=== PATIENT | male | born 1990 | race Caucasian/White ===

== ENCOUNTER 2018-11-12 14:28 | Emergency (ER) | payer MEDICAID ==
[2018-11-12 15:26] LABS: % BASOPHILS 0.3 % (0.0-2.0); % EOSINOPHILS 0.8 % (0.0-5.0); % LYMPHOCYTES 8.5 % (20.0-50.0); % MONOCYTES 5.1 % (2.0-10.0); % NEUTROPHILS 85.3 % (40.0-80.0); EOSINOPHILE ABSOLUTE 0.1 Th/cmm (0.1-0.4); HEMATOCRIT 46.2 % (41.0-60); HEMOGLOBIN 15.4 gm/dL (12-16); LYMPHOCYTE ABSOLUTE 0.9 Th/cmm (1.5-3.0); MEAN CORPUSCULAR HEMOGLOBIN 28.4 pg (26.0-30.0); MEAN CORPUSCULAR HGB CONC 33.4 pg (28.0-36.0); MEAN PLATELET VOLUME 7.6 fl; MONOCYTE ABSOLUTE 0.5 Th/cmm (0.3-1.0); NEUTROPHILE ABSOLUTE 9.1 Th/cmm (1.8-8.0); PLATELET COUNT 271 Th/cmm (150-400); RED BLOOD COUNT 5.44 Mil/cmm (4.30-5.70); RED CELL DISTRIBUTION WIDTH 12.5 % (11.5-20.0); WHITE BLOOD COUNT 10.6 Th/cmm (4.8-10.8)
[2018-11-12 15:43] LABS: ALB/GLOB RATIO 1.3 (1.0-1.8); ALKALINE PHOSPHATASE 64 U/L (34-104); ANION GAP 13.6 (7.0-16.0); BILIRUBIN,TOTAL 0.4 mg/dL (0.3-1.0); BUN - UREA NITROGEN 17 mg/dL (7-25); CALCIUM SERUM 9.6 mg/dL (8.6-10.3); CARBON DIOXIDE 26.7 mEq/L (21.0-31.0); CHLORIDE 103 mEq/L (98-107); CREATININE - SERUM 0.9 mg/dL (0.7-1.3); GFR AFRICAN-AMERICAN > 60.0 ml/min (>90); GFR NON AFRICAN-AMERICAN > 60.0 ml/min; GLUCOSE 109 mg/dL (70-105); POTASSIUM SERUM 4.3 mEq/L (3.5-5.1); SGOT 39 U/L (13-39); SGPT/ALT 55 U/L (7-52); SODIUM SERUM 139 mEq/L (136-145); TOTAL PROTEIN,SERUM 7.2 gm/dL (6.0-8.3)
[2018-11-12] MEDS ORDERED: Morphine Sulfate 2 mg/mL 1mL Syr IVP STA (15:58)
[2018-11-12] MEDS ORDERED: Morphine Sulfate 2 mg/mL 1mL Syr ONE (16:10)
[2018-11-12] MEDS ORDERED: IOHEXOL 350mgI/mL 150mL IV ONE (16:44)
[2018-11-12] MEDS ORDERED: Lactated Ringer 1,000 ML IV ONE (18:16)
--- NOTE | 2018-11-12 18:27 | ED Physician Chart ---
ED Chief Complaint/HPI - Patient Information Date Seen:: 11/12/18 Time Seen:: 14:48 Chief Complaint:: left clavicle pain History of Present Illness:: left clavicle pain s/p snowboard accident 1 hour prior to presentation. Allergies:: Allergies Allergy/AdvReac Type Severity Reaction Status Date / Time No Known Allergies Allergy Verified 11/12/18 14:48 Vitals:: Vital Signs - 8 hr 11/12/18 11/12/18 14:48 17:49 Temp 98.5 F 98.2 F HR 79 97 RR 16 16 BP 131/70 144/83 O2 Sat % 99 98 Historian:: Patient, Family Member Review:: Nurse's Note Reviewed ED Review of Systems - Review of Systems General/Constitutional: No fever, No chills, No weight loss, No weakness, No diaphoresis, No edema, No loss of appetite Skin: No skin lesions, No rash, No bruising Head: No headache, No light-headedness Eyes: No loss of vision, No pain, No diplopia ENT: No earache, No nasal drainage, No sore throat, No tinnitus Neck: No neck pain, No swelling, No thyromegaly, No stiffness, No mass noted Cardio Vascular: No chest pain, No palpitations, No PND, No orthopnea, No edema Pulmonary: No SOB, No cough, No sputum, No wheezing GI: No nausea, No vomiting, No diarrhea, No pain, No melena, No hematochezia, No constipation, No hematemesis G/U: No dysuria, No frequency, No hematuria Musculoskeletal: Bone or joint pain Endocrine: No polyuria, No polydipsia Psychiatric: No prior psych history, No depression, No anxiety, No suicidal ideation Hematopoietic: No bruising, No lymphadenopathy Allergic/Immuno: No urticaria, No angioedema Neurological: No syncope, No focal symptoms, No weakness, No paresthesia, No headache, No seizure, No dizziness, No confusion, No vertigo ED Past Medical History - Past Medical History Obtainable: Yes Past Medical History: No significant medical hx Family Medical History - Family Member Mother History Unknown: Yes ED Physical Exam - Physical Examination General/Constitutional: Awake, Well-developed, well-nourished, Alert, No distress, GCS 15, Non-toxic appearing, Ambulatory Head: Atraumatic Eyes: Lids, conjuctiva normal, PERRL, EOMI Skin: Nl inspection, No rash, No skin lesions, No ecchymosis, Well hydrated, No lymphadenopathy ENMT: External ears, nose nl Neck: Nontender, No nuchal rigidity, No stridor Respiratory: Nl effort/Exclusion, Clear to Auscultation, No Wheeze/Rhonchi/Rales Cardio Vascular: RRR, No murmur, gallop, rubs, NL S1 S2 Extremities: Normal digits & nails Other Extremities comments:: obvious step off deformity seen and palpated left clavicle (mid) Neuro/Psych: Alert/oriented Other Neuro/Psych comments:: not able to move LUE much due to pain. Able to bend left elbow and move left hand. No evidence of compartment syndrome. NV intact. in pain. ED Labs/Radiology/EKG Results - Lab Results Results: Laboratory Tests 11/12/18 11/12/18 15:20 15:20 WBC 10.6 RBC 5.44 Hgb 15.4 Hct 46.2 MCV 85.0 MCH 28.4 MCHC Differential 33.4 RDW 12.5 Plt Count 271 MPV 7.6 Neutrophils % 85.3 H Lymphocytes % 8.5 L Monocytes % 5.1 Eosinophils % 0.8 Basophils % 0.3 Sodium 139 Potassium 4.3 Chloride 103 Carbon Dioxide 26.7 Anion Gap 13.6 BUN 17 Creatinine 0.9 Est GFR ( Amer) > 60.0 Est GFR (Non-Af Amer) > 60.0 BUN/Creatinine Ratio 18.9 Glucose 109 H Calcium 9.6 Total Bilirubin 0.4 AST 39 ALT 55 H Alkaline Phosphatase 64 Total Protein 7.2 Albumin 4.0 L Globulin 3.2 Albumin/Globulin Ratio 1.3 ED Assessment - Assessment General Assessment: Left shoulder xray: negative. No dislocation. Left clavicle xray: comminuted, displaced and shortened left clavicle fracture. CTA left upper extremity: left distal clavicle with surrounding swelling of the regional musculature and inflammatory changes and trace fluid. Cannot rule out venous bleed. Correlate clinically. Consider further assessment if indicated. Patent left subclavian artery. No evidence of dissection or arterial extravasation. [facility] was called. They suggested calling [facility] since it is a trauma center. Dr. Abdullahi accepted the patient in transfer after I talked to Dr. Barahona, vascular surgeon, who he asked me to call. Dr. Mason then called me back and I represented the case to her. She said that she would talk to the trauma surgeon, the orthopedic surgeon and the vascular surgeon. Patient has ED Septic Shock - . Is Septic Shock (SBP<90, OR Lactate>4 mmol\L) present?: No - <6hrs of presentation: Vital Signs: Vital Signs - 8 hr 11/12/18 11/12/18 14:48 17:49 Temp 98.5 F 98.2 F HR 79 97 RR 16 16 BP 131/70 144/83 O2 Sat % 99 98 ED Reassessment (Disposition) - Reassessment Reassessment Condition:: Unchanged - Diagnosis Diagnosis:: Left comminuted, displaced fracture which is shortened with suspected venous leak. - Patient Disposition Discharge/Transfer:: Against Medical Advice Condition at Disposition:: Stable, Unchanged
--- NOTE | 2018-11-13 09:31 | Diagnostic Imaging Report ---
CT angiogram of the chest with intravenous contrast (CT scan neck/upper chest) HISTORY: Pain, trauma Total DLP equals 369 CTDI equals 30.0 Following administration of intravenous contrast, axial sections were obtained from a level below the mandible down through the region of the mid left atrium. The exam demonstrates normal opacification of the major vascular structures within the neck. No intraluminal abnormalities. No abnormal soft tissue masses seen within the neck. Preservation of normal margins about the major muscular bundles. The airway appears normal. Images of the upper chest demonstrate suboptimal opacification of the pulmonary arteries. No obvious intraluminal filling defects are seen. Specifically, no obvious evidence of pulmonary embolism. No abnormal masses seen within the mediastinum. No abnormal focal pulmonary parenchymal processes seen within the upper chest. IMPRESSION: 1. Examination limited to the neck and upper chest. No definite abnormalities.
--- NOTE | 2018-11-13 10:23 | Diagnostic Imaging Report ---
Left shoulder (3 views) HISTORY: Pain, trauma There is a displaced, overlapping, comminuted fracture involving the midportion of the left clavicle. IMPRESSION: Fracture left clavicle as noted above
--- NOTE | 2018-11-13 10:24 | Diagnostic Imaging Report ---
Left clavicle (2 views) HISTORY: Pain, trauma The exam demonstrates a comminuted, overlapping, displaced fracture involving the midportion of the left clavicle. There appears to be hypertrophic degenerative bony changes about the acromioclavicular joint. Small calcific density noted adjacent to the inferior margin of the distal clavicle. This may represent a fracture fragment as well. IMPRESSION: 1. Fracture left clavicle as noted above
== END 2018-11-12 19:54 | disposition left against medical advice (07) ==
LOC: ER 14:28
DX: S42.002A Fracture of unspecified part of left clavicle, initial encounter for closed fracture (principal); V00.311A Fall from snowboard, initial encounter; Y93.23 Activity, snow (alpine) (downhill) skiing, snowboarding, sledding, tobogganing and snow tubing; Y92.89 Other specified places as the place of occurrence of the external cause; Y99.8 Other external cause status
CPT/HCPCS: 99284; 96374; 96375; 73000; 73030; 71275; 36415; 85025; 80053; J2270; J1885; J2405; Z7502

== ENCOUNTER 2018-11-22 11:53 | Emergency (ER) | payer MEDICAID ==
--- NOTE | 2018-11-23 05:48 | ED Physician Chart ---
ED Chief Complaint/HPI - Patient Information Date Seen:: 11/22/18 Time Seen:: 12:00 Chief Complaint:: Right Facial Weakness History of Present Illness:: onset x 3 hours of right facial droop and weakness; pt denies trauma, LOC, ALOC , AMS, visual or gait changes, paresthesias, vertigo, dizziness, neck pain, H/As , C/P, SOB, Abd. Pain, A/N/V/D/C, dysphagia, fever, chills, or urinary s/s; pt is eating and urinating well; pt last urinated one hour [employer]RELATED [employer]ATION [employer] Allergies:: Allergies Allergy/AdvReac Type Severity Reaction Status Date / Time No Known Allergies Allergy Verified 11/12/18 14:48 Historian:: Patient, Family Member Review:: Nurse's Note Reviewed, Old Chart Reviewed ED Review of Systems - Review of Systems General/Constitutional: No fever, No chills, No weight loss, Weakness, No diaphoresis, No edema, No loss of appetite Skin: No skin lesions, No rash, No bruising Head: No headache, No light-headedness Eyes: No loss of vision, No pain, No diplopia ENT: No earache, No nasal drainage, No sore throat, No tinnitus Neck: No neck pain, No swelling, No thyromegaly, No stiffness, No mass noted Cardio Vascular: No chest pain, No palpitations, No PND, No orthopnea, No edema Pulmonary: No SOB, No cough, No sputum, No wheezing GI: No nausea, No vomiting, No diarrhea, No pain, No melena, No hematochezia, No constipation, No hematemesis G/U: No dysuria, No frequency, No hematuria, No nacturia Musculoskeletal: No bone or joint pain, No back pain, No muscle pain Endocrine: No polyuria, No polydipsia Psychiatric: No prior psych history, No depression, No anxiety, No suicidal ideation, No homicidal ideation, No auditory hallucination, No visual hallucination Hematopoietic: No bruising, No lymphadenopathy Allergic/Immuno: No urticaria, No angioedema Neurological: No syncope, No focal symptoms, Weakness, No paresthesia, No headache, No seizure, No dizziness, No confusion, No vertigo ED Past Medical History - Past Medical History Obtainable: Yes Past Medical History: No significant medical hx Family History: None Social History: Non Smoker, No Alcohol, No Drug Use, Single Surgical History: None Psychiatricy History: None Medication: Reviewed Family Medical History - Family Member Mother History Unknown: Yes Living Status: Still Living ED Physical Exam - Physical Examination General/Constitutional: Awake, Well-developed, well-nourished, Alert, No distress, GCS 15, Non-toxic appearing, Ambulatory Head: Atraumatic Eyes: Lids, conjuctiva normal, PERRL, EOMI Other Eyes comments:: PERRLA; Fundi: benign; EOMs: WNl Skin: Nl inspection, No rash, No skin lesions, No ecchymosis, Well hydrated, No lymphadenopathy ENMT: External ears, nose nl, TM canals nl, Nasal exam nl, Lips, teeth, gums nl , Oropharynx nl, Tonsils nl Other ENMT comments:: TMJs: WNL Neck: Nontender, Full ROM w/o pain, No JVD, No nuchal rigidity, No bruit, No mass, No stridor Other Neck comments:: supple; no meningeal signs; no cervical tenderness Respiratory: Nl effort/Exclusion, Clear to Auscultation, No Wheeze/Rhonchi/Rales Cardio Vascular: RRR, No murmur, gallop, rubs, NL S1 S2, Carotid/Femoral/Distal pulses equal bilaterally GI: No tenderness/rebounding/guarding, No organomegaly, No hernia, Normal BS's, Nondistended, No mass/bruits, No McBurney tenderness, Rectum exam nl : No CVA tenderness Extremities: No tenderness or effusion, Full ROM, normal strength in all extremities, No edema, Normal digits & nails Neuro/Psych: Alert/oriented, DTR's symmetric, Normal sensory exam, Normal motor strength, Judgement/insight normal, Mood normal, Normal gait, No focal deficits Other Neuro/Psych comments:: + Right Facial Droop; decreased motor and sensory functions of right facial 7th nerve of right face; otherwise good NV functions Misc: Normal back, No paraspinal tenderness ED Labs/Radiology/EKG Results - Radiology Results Comments:: CT Scans: deferred by pt ED Septic Shock - . Is Septic Shock (SBP<90, OR Lactate>4 mmol\L) present?: No ED Reassessment (Disposition) - Reassessment Reassessment:: pt tolerated po fluids well in ER; pt is asymptomatic upon discharge Reassessment Condition:: Improved - Diagnosis Diagnosis:: Dx: Otto's Palsy; Facial Weakness; Facial Droop; Seventh Nerve Palsy; Facial Palsy - Aftercare/Follow up Instructions Aftercare/Follow-Up Instructions:: Counseled pt regarding lab results/diagnosis & need follow up, Refer to Discharge Instructions, Counseled pt & family regarding lab results/diagnosis & need follow up Medication Prescribed:: Rx: Acyclovir/Medrol Dose Pack/Motrin: take all medications as prescribed - Patient Disposition Discharge/Transfer:: Home Condition at Disposition:: Stable, Improved (RTER prn if existing s/s reoccur and/or get worse and/or any other new s/s occur; ACIs given for all above Dx; Refer to Neurologist/Complaint Operator TIFF; F/U with PMD in one day or as needed; RTEr prn if concerned)
== END 2018-11-22 12:30 | disposition home or self-care (01) ==
LOC: ER 11:53
DX: G51.0 Bell's palsy (principal)
CPT/HCPCS: Z7502